=== PATIENT | female | born 1990 | race Caucasian/White ===

== ENCOUNTER → 2016-11-24 | Outpatient (REF) | LOC: M LAB 13:06 | PROVIDERS: ATTEND Nurse Practitioner Adult Health | DX: Z02.9 Encounter for administrative examinations, unspecified (principal) ==

== ENCOUNTER → 2017-08-25 | Outpatient (CLI) | payer OTHER ==
[2017-08-25 11:47] LABS: CONTROL LINE HCG INT CTR LINE PRESENT; HCG, SERUM QUALITATIVE NEGATIVE (NEGATIVE)
== END ==
LOC: M LAB 10:50
DX: M79.673 Pain in unspecified foot (principal)

== ENCOUNTER 2019-01-24 16:14 | Emergency (ER) | payer OTHER ==
[~2019-01-24] VITALS: Ht 170.2 cm; Wt 74.1 kg
[2019-01-24 16:15] VITALS: BP 136/81
[2019-01-24] MEDS ORDERED: TRAM50TA2 (16:25)
[2019-01-24] MEDS ORDERED: LEVORA-28 (16:25)
[2019-01-24] MEDS ORDERED: SERT-138 (16:25)
[2019-01-24] MEDS ORDERED: MELO7.5T35 (16:25)
[2019-01-24] MEDS ORDERED: BACT800T5 PO (17:02)
[2019-01-24] MEDS ORDERED: BACTRIM 160MG/800MG DS TAB PO ONE (17:30)
== END 2019-01-24 17:15 | disposition home or self-care (01) ==
LOC: M ED 16:14
DX: T81.40XA Infection following a procedure, unspecified, initial encounter (principal); L03.116 Cellulitis of left lower limb; Y79.2 Prosthetic and other implants, materials and accessory orthopedic devices associated with adverse incidents; F41.9 Anxiety disorder, unspecified; Z87.891 Personal history of nicotine dependence; Z91.040 Latex allergy status; Z79.899 Other long term (current) drug therapy; Z79.3 Long term (current) use of hormonal contraceptives; M79.672 Pain in left foot; M25.572 Pain in left ankle and joints of left foot; M25.775 Osteophyte, left foot
CPT/HCPCS: 73610; 73630; 99283; G0463

== ENCOUNTER → 2019-01-24 | Outpatient (CLI) | payer OTHER ==
[~2019-01-24] MED LIST: BACT800T5 PO; LEVORA-28; MELO7.5T35; SERT-138; TRAM50TA2
--- NOTE | 2019-01-24 14:56 | REP ---
LEFT ANKLE, FOUR VIEWS: HISTORY: Pain. There is no acute fracture or dislocation. The joint space is normal in appearance. An osteophyte is present on the posterior calcaneus. Minimal soft tissue swelling is present. IMPRESSION: There is no acute fracture or dislocation. Electronically Signed by Jerry Pimentel MD 01/24/2019 03:05 P
--- NOTE | 2019-01-24 15:06 | REP ---
LEFT FOOT, FOUR VIEWS: HISTORY: Pain. There is no acute fracture or dislocation. The joint spaces are normal in appearance. An osteophyte is present on the posterior calcaneus. IMPRESSION: There is no acute fracture or dislocation. Electronically Signed by Jerry Pimentel MD 01/24/2019 03:10 P
== END ==
LOC: M LRY 14:16
PROVIDERS: ATTEND Physician Assistant
DX: M79.672 Pain in left foot (principal); M25.572 Pain in left ankle and joints of left foot; M25.775 Osteophyte, left foot

== ENCOUNTER 2019-01-30 17:34 | Emergency (ER) | payer OTHER ==
[~2019-01-30] VITALS: Ht 172.7 cm; Wt 71.8 kg
[2019-01-30 18:46] LABS: BASO % 0.6 % (0.0-1.0); EOS # 0.2 10^3/uL (0.0-0.50); EOS % 3.2 % (0.0-3.0); HEMATOCRIT 39.1 % (36.0-47.0); HEMOGLOBIN 12.9 g/dl (12.0-15.5); LYMPH # 1.7 10^3/uL (1.5-6.5); MEAN CORPUSCULAR HEMOGLOBIN 30.9 pg (27.0-33.0); MEAN CORPUSCULAR VOLUME 93.5 fl (80.0-96.0); MONO # 0.5 10^3/uL (0.0-0.8); MONO % 8.7 % (0.0-5.0); NEUTROPHILS # 2.9 10^3/uL (1.8-7.7); NEUTROPHILS % 54.3 % (36.0-66.0); PLATELET COUNT, AUTOMATED 274 10^3/uL (150-450); RED BLOOD COUNT 4.18 10^6/uL (4.00-5.40); WHITE BLOOD COUNT 5.3 10^3/uL (4.0-10.0)
[2019-01-30 19:09] LABS: ERYTHROCYTE SEDIMENTATION RATE 26 mm/hr (0-20)
[2019-01-30 19:46] VITALS: BP 124/81
== END 2019-01-30 19:49 | disposition home or self-care (01) ==
LOC: M ED 17:34
DX: L03.116 Cellulitis of left lower limb (principal); Z91.040 Latex allergy status; Z79.3 Long term (current) use of hormonal contraceptives

== ENCOUNTER → 2019-02-03 | Outpatient (REF) | payer OTHER | LOC: M SFHCLERA 10:07 | PROVIDERS: ATTEND Nurse Practitioner Family | DX: J02.9 Acute pharyngitis, unspecified (principal) ==